=== PATIENT | female | born 1990 | race Caucasian/White ===

== ENCOUNTER → 2018-02-07 | Outpatient (CLI) | payer BC | LOC: COL.LAB 09:50 | PROVIDERS: Family Medicine | DX: Z13.1 Encounter for screening for diabetes mellitus (principal); Z13.220 Encounter for screening for lipoid disorders ==

== ENCOUNTER → 2019-09-29 | Outpatient (CLI) | payer BC ==
[~2019-09-29] MED LIST: BIRTH CONTROL PILL
[2019-09-29 17:36] LABS: BASO % 0.2 % (0.0-2.0); EOS % 0.5 % (0-4.0); GRAN # 3.8 (1.4-6.5); GRAN % 46.9 % (42.2-75.2); HEMATOCRIT 39.8 % (37.0-47.0); LYMPH # 3.4 (1.2-3.4); LYMPH % 42.2 % (20.0-51.0); MEAN CELL VOLUME 93 fl (80.0-100.0); MEAN CORPUSCULAR HEMOGLOBIN 33 pg (27.0-31.0); MEAN CORPUSCULAR HGB CONC 35 g/dl (33.0-37.0); MEAN PLATELET VOLUME 11.1 fl (7.4-10.4); MONO # 0.8 (0.1-0.6); PLATELET COUNT 242 K/mm3 (130-400); RED BLOOD COUNT 4.28 M/mm3 (4.10-5.30)
[2019-09-29 17:54] LABS: ALANINE AMINOTRANSFERASE 22 U/L (9-52); ALBUMIN 4.6 gm/dL (3.5-5.0); ALKALINE PHOSPHATASE 41 U/L (50-136); ANION GAP 9 mmol/L (7-16); AST,SGOT 31 U/L (15-37); BILIRUBIN,TOTAL 0.8 mg/dL (0.0-1.0); BLOOD UREA NITROGEN 17 mg/dL (7-17); CALCIUM 9.8 mg/dL (8.4-10.2); CARBON DIOXIDE 25 mmol/L (22-30); CHLORIDE 105 mmol/L (98-107); CREATININE, serum 0.86 (0.52-1.25); GLUCOSE 93 mg/dL (74-106); POTASSIUM 3.8 mmol/L (3.4-5.0); SODIUM 140 mmol/L (137-145); TOTAL PROTEIN 7.8 gm/dL (6.4-8.2)
[2019-09-29 17:57] LABS: C-REACTIVE PROTEIN < 0.5 mg/dL (0.0-0.9)
== END ==
LOC: COL.LAB 17:15 → COL.RAD 17:15
PROVIDERS: Family Medicine
DX: R05 Cough (principal); R53.83 Other fatigue

== ENCOUNTER → 2019-10-30 | Outpatient (CLI) | payer BC ==
[2019-10-30 12:09] LABS: BASO % 0.2 % (0.0-2.0); EOS # 0.1 (0.0-0.7); EOS % 0.6 % (0-4.0); GRAN # 5.1 (1.4-6.5); GRAN % 60.4 % (42.2-75.2); HEMATOCRIT 42.3 % (37.0-47.0); HEMOGLOBIN 14.8 g/dl (12.5-16.0); LYMPH # 2.6 (1.2-3.4); LYMPH % 30.1 % (20.0-51.0); MEAN CELL VOLUME 95 fl (80.0-100.0); MEAN CORPUSCULAR HEMOGLOBIN 33 pg (27.0-31.0); MEAN CORPUSCULAR HGB CONC 35 g/dl (33.0-37.0); MEAN PLATELET VOLUME 11.3 fl (7.4-10.4); MONO # 0.7 (0.1-0.6); MONO % 8.5 % (1.7-9.3); PLATELET COUNT 261 K/mm3 (130-400); RED BLOOD COUNT 4.47 M/mm3 (4.10-5.30); REDCELL DISTRIBUTION WIDTH-CV 12.3 % (11.5-14.5)
== END ==
LOC: COL.LAB 10:59
PROVIDERS: Physician Assistant
DX: R05 Cough (principal)

== ENCOUNTER 2020-08-11 08:05 | Emergency (ER) | payer BC, OTHER ==
[~2020-08-11] VITALS: Ht 162.6 cm; Wt 70.5 kg
[2020-08-11 08:13] VITALS: TEMP 98.1
[2020-08-11] MEDS ORDERED: CLARITIN 1010 MG/TAB PO (08:43)
[2020-08-11 08:53] LABS: BASO % 0.5 % (0.0-2.0); EOS # 0.1 (0.0-0.7); EOS % 0.7 % (0-4.0); GRAN # 4.6 (1.4-6.5); HEMATOCRIT 40.1 % (37.0-47.0); HEMOGLOBIN 14.1 g/dl (12.5-16.0); LYMPH % 26.3 % (20.0-51.0); MEAN CELL VOLUME 93 fl (80.0-100.0); MEAN CORPUSCULAR HEMOGLOBIN 33 pg (27.0-31.0); MEAN CORPUSCULAR HGB CONC 35 g/dl (33.0-37.0); MONO # 0.8 (0.1-0.6); MONO % 10.2 % (1.7-9.3); PLATELET COUNT 234 K/mm3 (130-400); RED BLOOD COUNT 4.33 M/mm3 (4.10-5.30); REDCELL DISTRIBUTION WIDTH-CV 12.6 % (11.5-14.5)
[2020-08-11 09:02] LABS: CALCIUM 9.2 mg/dL (8.4-10.2); CREATININE, serum 0.73 (0.52-1.25); POTASSIUM 4.5 mmol/L (3.4-5.0)
[2020-08-11 10:54] VITALS: BP 120/75; PULSE 67
== END 2020-08-11 10:45 | disposition home or self-care (01) ==
LOC: COL.ER 08:05
PROVIDERS: Emergency Medicine
DX: O20.0 Threatened abortion (principal); Z3A.00 Weeks of gestation of pregnancy not specified

== ENCOUNTER 2022-05-30 22:18 | Inpatient (IN) | payer BC ==
[~2022-05-30] VITALS: Ht 165.1 cm; Wt 97.3 kg
[~2022-05-30 22:18] MED LIST changes: +CLARITIN 1010 MG/TAB PO
--- NOTE | 2022-05-30 22:40 | NUR ---
PT TO UNIT VIA WHEELCHAIR WITH SPOUSE WITH COMPLAINTS OF CONTRACTIONS SINCE 2099. PT ORIENTED TO ROOM, CHANGED INTO GOWN. VS OBTAINED, SVE PERFORMED, EFMX2 APPLIED.
[2022-05-30 23:15] VITALS: BP 144/100; PULSE 73; TEMP 97.5
[2022-05-30 23:45] VITALS: BP 159/98; PULSE 71
[2022-05-31] VITALS (37 sets, daily range): BP systolic 110–161; BP diastolic 58–93; PULSE 60–133; TEMP 97.8–99.4
[2022-05-31] MEDS ORDERED: PRENATAL TABLET PO (00:32)
[2022-05-31 00:35] LABS: BASO # 0.1 K/mm3 (0.0-0.2); BASO % 0.3 % (0.0-2.0); EOS % 0.2 % (0.0-4.0); GRAN # 13.5 K/mm3 (1.4-6.5); GRAN % 78.1 % (42.2-75.2); HEMATOCRIT 43.5 % (37.0-47.0); HEMOGLOBIN 15.9 g/dl (12.5-16.0); LYMPH # 2.3 K/mm3 (1.2-3.4); LYMPH % 13.4 % (20.0-51.0); MEAN CELL VOLUME 91 fl (80.0-100.0); MEAN CORPUSCULAR HEMOGLOBIN 33 pg (27-31); MEAN CORPUSCULAR HGB CONC 37 g/dl (33.0-37.0); MONO # 1.2 K/mm3 (0.1-0.6); MONO % 7.2 % (1.7-9.3); PLATELET COUNT 209 K/mm3 (130-400); RED BLOOD COUNT 4.78 M/mm3 (4.10-5.30); REDCELL DISTRIBUTION WIDTH-CV 12.2 % (11.5-14.5)
--- NOTE | 2022-05-31 00:55 | NUR ---
0036- PT SITTING UP AT BEDSIDE FOR EPIDURAL PLACEMENT. Nayan NICHOLAS CRNA IN ROOM FOR PLACEMENT. 0047- TEST DOSE GIVEN BY Nayan NICHOLAS CRNA. PT TOLERATED WELL. 0055- PT REPOSITIONED TO [facility] FOLLOWING EPIDURAL PLACEMENT.
[2022-05-31 03:22] LABS: COLLECTION METHOD CATHETER; MUCOUS Present (NOT PRESENT); SQUAMOUS EPITHELIAL 0-2 /hpf (0-10); URINE BACTERIA Rare /hpf (NONE SEEN); URINE CALCIUM OXALATE CRYSTAL Present (NOT PRESENT)
[2022-05-31 03:25] LABS: PH 5.5 (5.0-8.5); URINE APPEARANCE Cloudy (CLEAR/HAZY); URINE COLOR Amber (YELLOW); URINE GLUCOSE Negative (NEGATIVE); URINE KETONE 3+ (NEGATIVE); URINE PROTEIN(semi-quant) 1+ (NEGATIVE)
[2022-05-31 03:26] LABS: URINE BLOOD 1+ (NEGATIVE); URINE NITRATE Negative (NEGATIVE); URINE UROBILINOGEN 0.2 E.U/dL (0.2-1.0)
[2022-05-31 03:59] LABS: ALBUMIN 3.3 gm/dL (3.5-5.0); BILIRUBIN,TOTAL 0.5 mg/dL (0.2-1.2); CALCIUM 9.8 mg/dL (8.4-10.2); CREATININE, serum 0.99 mg/dL (0.57-1.11); POTASSIUM 3.3 mmol/L (3.5-4.5); TOTAL PROTEIN 6.7 gm/dL (6.2-8.1)
--- NOTE | 2022-05-31 05:00 | NUR ---
0452- PT BEGINS PUSHING WITH THIS NURSE. 0500- MIRZA DC'D, 45MLS URINE OUT. DR. GARCIA ON UNIT FOR ANOTHER PT. PUSHING STOPPED PER DR. GARCIA. PT REPOSITIONED TO [facility]. THIS NURSE OUT OF ROOM.
--- NOTE | 2022-05-31 05:33 | NUR ---
THIS NURSE RESUMES PUSHING WITH PT PER DR. GARCIA.
--- NOTE | 2022-05-31 07:05 | NUR ---
0620: THIS RN AT BEDSIDE RECEIVING REPORT. CONTINUES PUSHING WITH PT. STRONG MATERNAL EFFORT. PT REPORTING FATIGUE WITH PUSHING. 0700: AT BEDSIDE PUSHING WITH PT. VORB TO PREPARE ROOM FOR DELIVERY AND NOTIFY ALL STAFF. CONTINUES PUSHING WITH PT AT THIS TIME. 0705: OF VIABLE FEMALE AT THIS TIME. TERMINAL MEC NOTED AT DELIVERY. INFANT PLACED ON MATERNAL ABDOMEN. CORD CLAMPED X2 AND CUT BY FOB. CARE OF INFANT ASSUMED BY LICHARN AND CHAZRN. 0708: OF PLACENTA PER . PITOCIN INFUSING PER PROTOCOL. FUNDUS FEELS "BOGGY" PER , MASSAGE PROVIDED BY THIS RN. FUNDUS BEGINS TO FIRM UP. PT'S VITAL SIGNS STABLE. LOCHIA WNL. BEGINS REPAIR OF SECOND DEGREE LACERATION. PT TOLERATING PROCEDURE WELL. WILL CONTINUE WITH PP CARES PER PROTOCOL.
[2022-05-31] MEDS ORDERED: MOTRIN 800800 MG/TAB PO (11:41)
[2022-06-01 01:22] VITALS: BP 113/74; PULSE 76; TEMP 98.1
[2022-06-01 07:00] VITALS: BP 118/79; PULSE 64; TEMP 98
--- NOTE | 2022-06-01 09:15 | NUR ---
Initial visit; Parents thanked [facility] for offering congratulations and God's blessings for the of their daughter. Ceo thanked family for choosing [facility]. The parents state that their stay here has been very good.
[2022-06-01 16:00] VITALS: BP 131/85; PULSE 75; TEMP 98
[2022-06-01 20:34] VITALS: BP 134/74; PULSE 68; TEMP 97.8
[2022-06-02 07:26] VITALS: BP 126/72; PULSE 76; TEMP 98.1
[2022-06-02 07:58] VITALS: BP 131/81; PULSE 107; TEMP 98.9
[2022-06-02 08:08] VITALS: BP 128/75; PULSE 85; TEMP 98.2
== END 2022-06-02 09:00 | disposition home or self-care (01) | DRG 807 ==
LOC: LDRO 22:18 → OB 05-31 00:04 → LDR 05-31 00:04 → OB 05-31 10:00
PROVIDERS: Obstetrics & Gynecology; ADMIT Student in an Organized Health Care Education/Training Program
PROC: 10E0XZZ Delivery of Products of Conception, External Approach (ICD-10-PCS; principal; 2022-05-31)
PROC: 0KQM0ZZ Repair Perineum Muscle, Open Approach (ICD-10-PCS; 2022-05-31)
DX: O48.0 Post-term pregnancy (principal); Z37.0 Single live birth; O99.344 Other mental disorders complicating childbirth; F41.9 Anxiety disorder, unspecified; F32.A Depression, unspecified; O99.214 Obesity complicating childbirth; O70.1 Second degree perineal laceration during delivery; Z3A.40 40 weeks gestation of pregnancy
CPT/HCPCS: J7120